=== PATIENT | female | born 1975 | race Caucasian/White ===

== ENCOUNTER 2016-05-09 15:19 | Inpatient (IN) | payer SELFPAY ==
[~2016-05-09] VITALS: Ht 167.6 cm; Wt 63.8 kg
[2016-05-09] MEDS ORDERED: LORA2TAB2 PO (15:26)
[2016-05-09 16:47] LABS: BASOPHILS % (AUTO) 0.5 % (0.0-2.0); EOSINOPHILS % (AUTO) 0.5 % (1.0-6.0); HEMATOCRIT 31.5 % (36-46); HEMOGLOBIN 9.9 g/dL (12.0-16.0); LYMPHOCYTES # (AUTO) 1.6 K/uL (1.0-4.8); LYMPHOCYTES % (AUTO) 13.9 % (22.0-44.0); MEAN CORPUSCULAR HEMOGLOBIN 22.1 pg (26.0-34.0); MEAN CORPUSCULAR HGB CONC 31.3 G/dL (31.0-37.0); MEAN CORPUSCULAR VOLUME 71 fL (80-100); MONOCYTES # (AUTO) 0.6 K/uL (0.1-1.0); MONOCYTES % (AUTO) 5.1 % (2.0-9.0); NEUTROPHILS # (AUTO) 9.2 K/uL (1.8-7.7); PLATELET COUNT (AUTO) 360 K/uL (150-450); RED BLOOD CELL COUNT(AUTO) 4.47 MIL/uL (4.00-5.20); RED CELL DISTRIBUTION WIDTH 22.6 % (11.5-14.5); WHITE BLOOD COUNT (AUTO) 11.6 K/uL (4.5-11.0)
[2016-05-09 16:55] LABS: ANION GAP 12 mmol/L (8-16); CALCIUM, TOTAL 8.6 mg/dL (8.8-10.5); CARBON DIOXIDE 22 mmol/L (22-29); CHLORIDE 107 mmol/L (98-107); CREATININE 0.61 mg/dL (0.60-1.30); GLOMERULAR FILTR. RATE CALC > 60 mL/min (>60); POTASSIUM 3.6 mmol/L (3.5-5.1); SODIUM SERUM 141 mmol/L (136-145); UREA NITROGEN, BLOOD 5 mg/dL (7-18)
[2016-05-09] MEDS ORDERED: ZOLPIDEM TARTRATE 10 MG TABLET PO PRN (17:00)
[2016-05-09 17:02] LABS: ALANINE AMINOTRANSFERASE 22 U/L (12-78); ALBUMIN 3.7 g/dL (3.4-5.0); ASPARTATE AMINOTRANSFERASE 12 U/L (15-37); BILIRUBIN,TOTAL 0.3 mg/dL (0.1-1.0); TOTAL PROTEIN, SERUM 7.3 g/dL (6.4-8.2)
[2016-05-09] MEDS ORDERED: LORazepam 2 MG TABLET PO ONE (17:15)
[2016-05-09 17:22] LABS: RBC MORPHOLOGY COMMENT ABNORMAL RBC MORPH
[2016-05-09 21:22] LABS: APPEARANCE,URINE CLEAR (CLEAR); GLUCOSE, URINE (UA) NEGATIVE (NEGATIVE); KETONES,URINE 15 mg/dL (NEGATIVE); LEUKOCYTE ESTERASE ,URINE MODERATE (NEGATIVE); OCCULT BLOOD,URINE TRACE (NEGATIVE); PH,URINE 5.5 (5.0-8.0); PROTEIN,URINE NEGATIVE (NEGATIVE)
[2016-05-09 21:23] LABS: ADD UA MICROSCOPIC YES
[2016-05-09 21:30] VITALS: BP 123/87
[2016-05-09 22:04] LABS: RBC,URINE 0-2 /HPF (0-2)
[2016-05-09] MEDS: LORazepam 2 MG TABLET PO PRN (23:55)
[2016-05-10 00:06] VITALS: BP 103/62
[2016-05-10] MEDS: HALOPERIDOL 5 MG TABLET PO PRN ×2 (10:19→18:28)
[2016-05-10] MEDS: LORazepam 2 MG TABLET PO PRN ×2 (10:19→18:28)
[2016-05-10 11:09] VITALS: BP 93/60
[2016-05-10] MEDS ORDERED: LOPERAMIDE HCL 2 MG CAPSULE PO PRN (11:15)
[2016-05-10] MEDS ORDERED: ACETAMINOPHEN 325 MG TABLET PO PRN (11:15)
[2016-05-10] MEDS ORDERED: ALBUTEROL SULFATE HFA 90 MCG/PUFF 8 GM INHALER IH PRN (11:15)
[2016-05-10] MEDS ORDERED: CloNIDine HCL 0.1 MG TABLET PO PRN (11:15)
[2016-05-10] MEDS ORDERED: IBUPROFEN 600 MG TABLET PO PRN (11:15)
[2016-05-10] MEDS ORDERED: ONDANSETRON HCL 4 MG TABLET PO PRN (11:15)
[2016-05-10] MEDS ORDERED: PETROLATUM,WHITE 71 GM JELLY TP PRN (11:15)
[2016-05-10] MEDS ORDERED: BACITRACIN 28.4 GM OINTMENT TP PRN (11:15)
[2016-05-10] MEDS ORDERED: MAGNESIUM HYDROXIDE SUSPENSION 30 ML UDCUP PO PRN (11:15)
[2016-05-10] MEDS ORDERED: MAG HYDROX/AL HYDROX/SIMETH ES 30 ML SUSPENSION UDCUP PO PRN (11:15)
[2016-05-10] MEDS ORDERED: BENZOCAINE/MENTHOL LOZENGE [8 LOZENGES/PACKET] MM PRN (11:30)
[2016-05-10] MEDS: BusPIRone HCL 5 MG TABLET PO SCH ×2 (14:11→16:44)
[2016-05-10] MEDS: VENLAFAXINE HCL 75 MG ER CAPSULE PO SCH (14:11)
[2016-05-10 16:25] VITALS: BP 102/60
[2016-05-10] MEDS: NITROFURANTOIN/NITROFURAN MAC 100 MG CAPSULE [MACROBID] PO SCH (16:44)
[2016-05-11 08:39] VITALS: BP 104/62
[2016-05-11] MEDS: MULTIVITAMINS WITH MINERALS, THERAPEUTIC TABLET PO SCH (09:36)
[2016-05-11] MEDS: VENLAFAXINE HCL 75 MG ER CAPSULE PO SCH (09:36)
[2016-05-11] MEDS: OMEPRAZOLE 20 MG CAPSULE PO SCH (09:36)
[2016-05-11] MEDS: BusPIRone HCL 5 MG TABLET PO SCH ×3 (09:36→16:18)
[2016-05-11] MEDS: DOCUSATE SODIUM 100 MG CAPSULE PO SCH (09:37)
[2016-05-11] MEDS: NITROFURANTOIN/NITROFURAN MAC 100 MG CAPSULE [MACROBID] PO SCH ×2 (09:37→16:18)
[2016-05-11] MEDS: LORazepam 2 MG TABLET PO PRN (12:02)
[2016-05-11] MEDS: HALOPERIDOL 5 MG TABLET PO PRN (14:52)
[2016-05-11 17:08] VITALS: BP 111/73
[2016-05-12] MEDS: BusPIRone HCL 5 MG TABLET PO SCH ×3 (10:04→16:19)
[2016-05-12] MEDS: DOCUSATE SODIUM 100 MG CAPSULE PO SCH (10:04)
[2016-05-12] MEDS: OMEPRAZOLE 20 MG CAPSULE PO SCH (10:04)
[2016-05-12] MEDS: MULTIVITAMINS WITH MINERALS, THERAPEUTIC TABLET PO SCH (10:05)
[2016-05-12] MEDS: VENLAFAXINE HCL 75 MG ER CAPSULE PO SCH (10:05)
[2016-05-12] MEDS: NITROFURANTOIN/NITROFURAN MAC 100 MG CAPSULE [MACROBID] PO SCH ×2 (10:07→16:18)
[2016-05-12 10:08] VITALS: BP 108/60
[2016-05-12 12:04] LABS: BASOPHILS # (AUTO) 0.07 K/uL (0.00-0.20); BASOPHILS % (AUTO) 0.5 % (0.0-2.0); EOSINOPHILS # (AUTO) 0.02 K/uL (0.00-0.70); EOSINOPHILS % (AUTO) 0.16 % (1.0-6.0); HEMATOCRIT 32.1 % (36-46); HEMOGLOBIN 10.1 g/dL (12.0-16.0); LYMPHOCYTES # (AUTO) 1.6 K/uL (1.0-4.8); LYMPHOCYTES % (AUTO) 10.9 % (22.0-44.0); MEAN CORPUSCULAR HEMOGLOBIN 22.2 pg (26.0-34.0); MEAN CORPUSCULAR HGB CONC 31.3 G/dL (31.0-37.0); MEAN CORPUSCULAR VOLUME 71 fL (80-100); MONOCYTES # (AUTO) 0.7 K/uL (0.1-1.0); MONOCYTES % (AUTO) 4.5 % (2.0-9.0); NEUTROPHILS # (AUTO) 12.2 K/uL (1.8-7.7); PLATELET COUNT (AUTO) 375 K/uL (150-450); RED BLOOD CELL COUNT(AUTO) 4.53 MIL/uL (4.00-5.20); RED CELL DISTRIBUTION WIDTH 21.9 % (11.5-14.5); WHITE BLOOD COUNT (AUTO) 14.6 K/uL (4.5-11.0)
[2016-05-12] MEDS: LORazepam 2 MG TABLET PO PRN (12:10)
[2016-05-12 12:30] LABS: APPEARANCE,URINE CLEAR (CLEAR); GLUCOSE, URINE (UA) NEGATIVE (NEGATIVE); KETONES,URINE NEGATIVE (NEGATIVE); LEUKOCYTE ESTERASE ,URINE TRACE (NEGATIVE); OCCULT BLOOD,URINE TRACE (NEGATIVE); PH,URINE 7.5 (5.0-8.0); PROTEIN,URINE NEGATIVE (NEGATIVE)
[2016-05-12 12:35] LABS: RBC MORPHOLOGY COMMENT ABNORMAL RBC MORPH
[2016-05-12 12:40] LABS: RBC,URINE 0-2 /HPF (0-2); SQUAMOUS EPITHELIAL CELL,UR Few /LPF (None Seen); WBC,URINE 0-2 /HPF (0-5)
[2016-05-12] MEDS ORDERED: VENL-67 PO (14:56)
[2016-05-12] MEDS ORDERED: DSS100 PO (14:56)
[2016-05-12] MEDS ORDERED: MULT-1239 PO (14:56)
[2016-05-12] MEDS ORDERED: BUSP5TAB20 PO (14:56)
[2016-05-12] MEDS ORDERED: OMEP20 PO (14:56)
[2016-05-12] MEDS ORDERED: MACR100 PO (14:56)
== END 2016-05-12 17:45 | disposition home or self-care (01) | DRG 885 ==
LOC: EEVIPCON 15:21 → EMS 15:21 → 3EI 20:27
DX: F33.2 Major depressive disorder, recurrent severe without psychotic features (principal); N39.0 Urinary tract infection, site not specified; R45.851 Suicidal ideations; G47.00 Insomnia, unspecified; D50.9 Iron deficiency anemia, unspecified; K59.00 Constipation, unspecified; E83.51 Hypocalcemia; F41.1 Generalized anxiety disorder; D25.9 Leiomyoma of uterus, unspecified; Z88.8 Allergy status to other drugs, medicaments and biological substances; Z79.899 Other long term (current) drug therapy
CPT/HCPCS: 87086; 99285; G0480